=== PATIENT | male | born 1955 | race Caucasian/White ===

== ENCOUNTER 2018-10-13 01:36 | Inpatient (IN) | payer SELFPAY ==
[~2018-10-13] VITALS: Ht 167.6 cm; Wt 65.8 kg
[2018-10-13 01:39] VITALS: BP 103/66
[2018-10-13] MEDS ORDERED: NACL 0.9% 1,000 ML IV ONE ×2 (01:40→03:45)
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
--- NOTE | 2018-10-13 02:05 | NUR ---
EMT CLEANING OUT LAC AT BEDSIDE.
--- NOTE | 2018-10-13 02:07 | NUR ---
LAB AT BEDSIDE.
--- NOTE | 2018-10-13 02:09 | NUR ---
DR. STRONG PERFORMING LAC REPAIR AT BEDSIDE.
--- NOTE | 2018-10-13 02:13 | NUR ---
4 KRISTOPHER PLACED TO RIGHT EAR, 8 PLACED TO RIGHT SIDE HEAD BY DR. STRONG. PT TOLERATED PROCEDURE WELL.
--- NOTE | 2018-10-13 02:20 | NUR ---
PT IS SLEEPING DEEPLY. AROUSABLE TO VOICE. SPO2 AT 89% ON RA. PT PLACED ON 3 LPM FIO2 VIA NC. SPO2 INCREASED TO 96%.
[2018-10-13 02:29] LABS: HEMATOCRIT 46.3 % (36-52); HEMOGLOBIN 15.3 g/dL (12.0-18.0); MEAN CORPUSCULAR HEMOGLOBIN 32 pg (27-31); MEAN CORPUSCULAR HGB CONC 33 g/dL (33-37); MEAN CORPUSCULAR VOLUME 96.7 fL (80-94); PLATELET COUNT (AUTO) 172 K/uL (140-450); RED BLOOD CELL COUNT(AUTO) 4.79 MIL/uL (4.20-6.10); RED CELL DISTRIBUTION WIDTH 15.5 % (11.6-13.7); WHITE BLOOD COUNT (AUTO) 17.8 K/uL (4.8-10.8)
--- NOTE | 2018-10-13 02:36 | NUR ---
PT TAKEN TO CT VIA [facility].
[2018-10-13 02:42] LABS: LYMPHOCYTES % (MANUAL) 4 % (20-46); MONOCYTES % (MANUAL) 11 % (5-12)
[2018-10-13 02:50] LABS: ANION GAP 17.9 (8-16); CARBON DIOXIDE 21.9 mmol/L (21-32); CREATININE 1.6 mg/dL (0.7-1.3); POTASSIUM 3.8 mmol/L (3.5-5.1)
--- NOTE | 2018-10-13 02:55 | NUR ---
PT RETURNED FROM CT VIA [facility].
[2018-10-13 02:56] LABS: ALBUMIN 3.6 g/dL (3.4-5.0); TOTAL BILIRUBIN 0.1 mg/dL (0.0-1.0)
--- NOTE | 2018-10-13 03:47 | NUR ---
PT SLEEPING DEEPLY. AROUSABLE TO STIMULI. VSS. SKIN PINK, WARM, DRY. BREATHING EVEN, UNLABORED.
--- NOTE | 2018-10-13 04:35 | NUR ---
PT AWAKE, REQUESTING WATER. UNABLE TO SPEAK IN COHERENT SENTENCES. CONFUSION NOTED. DR. STRONG MADE AWARE.
--- NOTE | 2018-10-13 04:42 | NUR ---
PT HAD EMESIS X 1. REQUESTING RR. URINAL PROVIDED.
--- NOTE | 2018-10-13 04:50 | NUR ---
EMPTIED 400 ML CLEAR YELLOW URINE FROM URINAL.
--- NOTE | 2018-10-13 04:51 | NUR ---
PT'S SPO2 SAT 86% ON RA AND IS SLIGHTLY TACHY AT [address] STRONG MADE AWARE.
--- NOTE | 2018-10-13 05:04 | NUR ---
XRAY AT BEDSIDE.
--- NOTE | 2018-10-13 05:10 | NUR ---
RT AT BEDSIDE PERFORMING ABG.
[2018-10-13] MEDS ORDERED: LEVOFLOXACIN 750 MG/D5W PREMIX 150 ML IV ONE (05:30)
[2018-10-13] MEDS ORDERED: NACL 0.9% 2,000 ML IV ONE (05:30)
[2018-10-13] MEDS ORDERED: cefTRIAXone 1,000 MG VIAL ONE (05:50)
--- NOTE | 2018-10-13 05:50 | NUR ---
LABS DRAWN AND SENT TO LAB. UA SENT TO LAB.
--- NOTE | 2018-10-13 06:00 | NUR ---
PT HAD EMESIS X 2. DR. STRONG NOTIFIED. NEW ORDERS RECEIVED.
[2018-10-13 06:05] LABS: APPEARANCE,URINE CLEAR (CLEAR); BILIRUBIN,URINE NEGATIVE (NEGATIVE); BLOOD, URINE 1+ (NEGATIVE); COLOR,URINE YELLOW (YELLOW); LEUKOCYTE ESTERASE ,URINE NEGATIVE (NEGATIVE); NITRITE, URINE NEGATIVE (NEGATIVE); PH,URINE 5.5 (5.0-9.0); UGLUCOSE NEGATIVE (NEGATIVE)
[2018-10-13] MEDS ORDERED: ONDANSETRON 4 MG/2 ML VIAL IVP ONE (06:05)
[2018-10-13 06:16] LABS: RBC,URINE NONE SEEN /HPF (0-5); WBC,URINE 0-5 /HPF (0-5)
[2018-10-13 06:17] LABS: HYALINE CASTS, URINE 0-10 /LPF (None Seen)
[2018-10-13 06:20] LABS: PROTHROMBIN TIME 9.5 secs (10.8-13.4)
--- NOTE | 2018-10-13 07:20 | NUR ---
RECEIVED REPORT FROM LORNE POPE.
--- NOTE | 2018-10-13 07:21 | NUR ---
EMPTIED 400ML CLEAR YELLOW URINE FROM URINAL. PT TACHY AT 117, VSS. PT VOICE SOUNDS WET, PT STATED THAT THAT IS HIS NORMAL SPEAKING VOICE, CRACKLES PRESENT IN UPPER AIRWAY ON EXPIRATION. Addendum: 10/13/18 at 0728 by HOSSEIN PT HAS PRESENCE OF PRODUCTIVE COUGH, O2 SAT AT 96%, RR EVEN, NON-LABORED, PT DENIES SOB
--- NOTE | 2018-10-13 07:43 | NUR ---
Patient will be admitted to care of [facility]. Admited to TELE VIA GUARIEL W/ VSS. Will go to room 111B. Belongings list completed.
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
[2018-10-13] MEDS ORDERED: NACL 0.9% 1,000 ML IV SCH (07:54)
[2018-10-13] MEDS ORDERED: ACETAMINOPHEN 325 MG TAB PO PRN (07:55)
[2018-10-13] MEDS ORDERED: LORazepam 2 MG/ML VIAL IM/IVP PRN (07:55)
[2018-10-13] MEDS ORDERED: HYDROcodone/APAP 5/325 MG 1 TAB TAB PO PRN (07:55)
[2018-10-13] MEDS ORDERED: MORPHINE SULFATE 2 MG/ML SYR IVP PRN (07:55)
[2018-10-13] MEDS ORDERED: ZOLPIDEM 5 MG TAB PO PRN (07:55)
[2018-10-13] MEDS ORDERED: DOCUSATE SODIUM 100 MG GELCAP PO PRN (07:55)
[2018-10-13 09:20] LABS: FREE T4 (FREE THYROXINE) 0.99 ng/dL (0.76-1.46); MAGNESIUM 2.2 mg/dL (1.8-2.4); PHOSPHORUS 5.7 mg/dL (2.5-4.9); THYROID STIMULATING HORMONE 1.8 uIU/mL (0.34-3.74)
[2018-10-13] MEDS ORDERED: hePARIN / DEXT 5% PREMIX 250 ML IV SCH ×2 (10:00→10:15)
[2018-10-13] MEDS ORDERED: HEPARIN PER PHARMACY MC PRN (10:00)
[2018-10-13 10:15] LABS: BARBITURATE, URINE NEG. ng/ml (NEG <=200); BENZODIAZEPINE, URINE NEG. ng/mL (NEG <=200); CANNABINOID, URINE NEG. ng/mL (NEG <=50); COCAINE, URINE NEG. ng/mL (NEG <=300); OPIATE, URINE POS. ng/mL (NEG <=2000); PHENCYCLIDINE SCREEN,URINE NEG. ng/mL (NEG <=25)
[2018-10-13] MEDS ORDERED: ONDANSETRON 4 MG/2 ML VIAL IM/IVP PRN (10:30)
--- NOTE | 2018-10-13 10:39 | NUR ---
ORDERED HEPARIN DRIP ON PT D/T [facility] 0.106. WILL START NEW IV LINE
--- NOTE | 2018-10-13 11:33 | NUR ---
HEALTH SYSTEMS ANALYST STARTED IV LINE 24 G ON RIGHT HAND. WILL SWITCH IV FLUIDS TO INFUSE THROUGH RIGHT AHND IV LINE AND HEPARIN DRIP ON LEFT HAND 20G.
--- NOTE | 2018-10-13 12:30 | NUR ---
BP 183/93, CHECKED 2X BUT STILL AROUND THE SAME RANGE. NOTIFIED AND HE SAID HE WILL ORDER HYDRALAZINE
[2018-10-13] MEDS ORDERED: hydrALAZINE 20 MG/ML VIAL IVP SCH (12:45)
[2018-10-13] MEDS ORDERED: METOPROLOL 25 MG TAB PO SCH (12:45)
--- NOTE | 2018-10-13 13:05 | NUR ---
RECHECKED BP AND IT WAS 157/92. WILL NOT GIVE HYDRALAZINE NOW. WILL GIVE ORDERED METOPROLOL
--- NOTE | 2018-10-13 13:25 | NUR ---
PATIENT HAS BEEN SCREENED AND CATEGORIZED LOW NUTRITION RISK. PATIENT WILL BE SEEN WITHIN 7 DAYS OF ADMISSION. 10/20/18 MAYTE GONZALEZ MBA, RD
[2018-10-13 13:42] VITALS: BP 157/92
[2018-10-13] MEDS ORDERED: MULTIVITAMIN-12 10 ML, THIAMINE 100 MG, FOLIC ACID 1 MG in NACL 0.9% 1,000 ML IV SCH (14:15)
[2018-10-13 16:00] VITALS: BP 134/71
[2018-10-13] MEDS: chlordiazePOXIDE 25 MG CAP PO SCH (16:44)
--- NOTE | 2018-10-13 18:45 | NUR ---
PTT 38.6. INCREASED RATE UP TO 9.3ML/HR AND GAVE BOLUS 2000 UNITS PRIOR TO INCREASING RATE PER MD PARAMETERS. CALLED INTERNATIONAL SALES MANAGER PHARMACIST TO MAKE SURE NEW RATE IS CORRECT. WILL CONTINUE TO MONITOR
--- NOTE | 2018-10-13 19:37 | NUR ---
GAVE BED SIDE REPORT FROM ONCOLOGY CONSULTANT TOSHIA COLLINS. PT IN STABLE CONDITION
--- NOTE | 2018-10-13 19:40 | NUR ---
RECEIVED PT SLEEPING, EASILY AROUSABLE TO VERBAL STIMULI, AAOX4, ABLE TO MAKE NEEDS KNOWN, VITAL SIGNS STABLE, DENIES ANY PAIN, HEPARIN DRIP INFUSING WELL AT LEFT HAND IV SITE, BANANA BAG INFUSING WELL VIA RT UA IV SITE, WITH RIGHT EAR LACERATION AND RIGHT FOREHEAD LACERATION, KRISTOPHER INTACT, NO ACTIVE BLEEDING NOTED, SITE CHART COMPUTER, PLAN OF CARE DISCUSSED, SAFETY MEASURES IN PLACE, CALL LIGHT WITHIN REACH.
[2018-10-13 20:00] VITALS: BP 133/73
[2018-10-13] MEDS: METOPROLOL 25 MG TAB PO SCH (20:58)
--- NOTE | 2018-10-13 21:00 | NUR ---
HEPARIN DISCONTINUED ORDERED, DUE MEDICATION GIVEN WITH EDUCATION PROVIDED, PT AMBULATED TO BR WITH STEADY GAIT, VOIDED FREELY, ALL NEEDS ATTENDED.
[2018-10-14] VITALS: BP 119/65
--- NOTE | 2018-10-14 | NUR ---
PT SLEEPING, EASILY AROUSABLE TO VERBAL STIMULI, VITAL SIGNS STABLE, DENIES ANY PAIN, NO SEIZURE EPISODE NOTED SO FAR, BANANA BAG INFUSING WELL, CONTINUE TO MONITOR CLOSELY.
[2018-10-14] MEDS: NACL 0.9% 1,000 ML IV SCH ×2 (01:20→10:30)
--- NOTE | 2018-10-14 03:50 | NUR ---
PT SLEEPING, AROUSABLE TO TOUCH, VITAL SIGNS STABLE, DENIES ANY PAIN, IVF INFUSING WELL, MONITORED CLOSELY.
[2018-10-14 04:00] VITALS: BP 140/76
--- NOTE | 2018-10-14 06:08 | NUR ---
PT AWAKE AMBULATING IN THE ROOM, REQUESTING FOR COFFEE, REINFORCE NPO EXCEPT MEDS STATUS, VERBALIZED UNDERSTANDING, DENIES ANY PAIN, NO SEIZURE EPISODE AND WITHDRAWAL SYMPTOMS NOTED, IVF INFUSING WELL, MONITORED CLOSELY.
--- NOTE | 2018-10-14 07:22 | NUR ---
PT EASILY AROUSABLE, NO DISTRESS NOTED, REPORT GIVEN TO TOSHIA MORFIN FOR CONTINUITY OF CARE.
--- NOTE | 2018-10-14 07:23 | NUR ---
RECEIVED REPORT FROM POLYSTYRENE MOLDING MACHINE TENDER NURSE. PATIENT LYING DOWN IN BED SLEEPING, AROUSABLE BY VOICE. NO DISTRESS NOTED. DENIES ANY PAIN. RESPIRATIONS EVEN, UNLABORED, ON ROOM AIR. AAOX4, CALM, COOPERATIVE, SKIN COLOR APPROPRIATE TO ETHNICITY, WARM TO TOUCH. HAS RIGHT EAR AND RIGHT FOREHEAD LACERATION WITH KRISTOPHER ON THEM, INTACT. NO S/S OF WOUND INFECTION NOTED. ABDOMEN SOFT, NON-DISTENDED. IV SITE INTACT, PATENT, AND INFUSING IVF PER MD ORDERS. REVIEWED PLAN OF CARE WITH PATIENT. PATIENT VERBALIZED UNDERSTANDING. SAFETY MEASURES IN PLACE, CALL LIGHT WITHIN REACH. WILL CONTINUE TO MONITOR.
[2018-10-14 08:00] VITALS: BP 136/76
[2018-10-14] MEDS: chlordiazePOXIDE 25 MG CAP PO SCH (08:50)
[2018-10-14] MEDS: METOPROLOL 25 MG TAB PO SCH (08:50)
[2018-10-14] MEDS ORDERED: LACTOBACILLUS RHAMNOSUS GG 1 EACH CAP PO SCH (09:00)
--- NOTE | 2018-10-14 09:12 | NUR ---
PATIENT SITTING IN BED ON THE PHONE. NO DISTRESS NOTED. DENIES ANY PAIN. SCHEDULED MEDICATIONS DUE GIVEN. WILL CONTINUE TO MONITOR.
[2018-10-14] MEDS ORDERED: LIB25 PO (09:18)
[2018-10-14] MEDS ORDERED: METO25TA PO (09:18)
[2018-10-14 10:22] LABS: BASOPHILS # (AUTO) 0.1 K/uL (0.00-0.22); BASOPHILS % (AUTO) 0.8 % (0.0-2.0); EOSINOPHILS % (AUTO) 0.1 % (0.0-4.0); HEMATOCRIT 42.4 % (36-52); HEMOGLOBIN 14.2 g/dL (12.0-18.0); LYMPHOCYTES # (AUTO) 1.1 K/uL (2.0-11.5); LYMPHOCYTES % (AUTO) 11.4 % (20.5-51.1); MEAN CORPUSCULAR HEMOGLOBIN 32 pg (27-31); MEAN CORPUSCULAR HGB CONC 34 g/dL (33-37); MONOCYTES # (AUTO) 0.8 K/uL (0.8-1.0); NEUTROPHILS # (AUTO) 7.7 K/uL (1.8-7.7); NEUTROPHILS % (AUTO) 79.7 % (42.2-75.2); PLATELET COUNT (AUTO) 145 K/uL (140-450); RED BLOOD CELL COUNT(AUTO) 4.46 MIL/uL (4.20-6.10); RED CELL DISTRIBUTION WIDTH 15.1 % (11.6-13.7); WHITE BLOOD COUNT (AUTO) 9.7 K/uL (4.8-10.8)
[2018-10-14 10:37] LABS: ANION GAP 13.3 (8-16); CARBON DIOXIDE 27.4 mmol/L (21-32); POTASSIUM 3.7 mmol/L (3.5-5.1)
[2018-10-14 10:39] LABS: MAGNESIUM 1.9 mg/dL (1.8-2.4); PHOSPHORUS 1.3 mg/dL (2.5-4.9)
--- NOTE | 2018-10-14 11:15 | NUR ---
DISCHARGE INSTRUCTIONS GIVEN TO PATIENT IN PREFERRED LANGUAGE OF GUAMANIAN. FOLLOW-UP INSTRUCTIONS WITH PCP, NEW/CHANGED MEDICATION REGIMEN AND SIDE EFFECTS, DIET REGIMEN, AND ALCOHOL WITHDRAWAL SYMPTOMS. ANSWERED ALL OF PATIENT'S QUESTIONS REGARDING DISCHARGE. PATIENT VERBALIZED COMPLETE UNDERSTANDING. PATIENT GOING HOME WITH BUS PASS. IV'S REMOVED WITH MINIMAL BLOOD AND LUMEN COMPLETELY INTACT. ID BANDS REMOVED. PATIENT ALL DRESSED AND READY TO GO HOME. ESCORTED PATIENT DOWN TO LOBBY VIA STEADY AMBULATION. PATIENT DISCHARGED TO HOME AT THIS TIME IN STABLE CONDITION.
== END 2018-10-14 11:21 | disposition home or self-care (01) | DRG 280 ==
LOC: MED 01:36 → MTU 07:19
PROVIDERS: ADMIT General Practice; ATTEND General Practice
PROC: 09Q0XZZ Repair Right External Ear, External Approach (ICD-10-PCS; principal; 2018-10-13)
PROC: 0HQ1XZZ Repair Face Skin, External Approach (ICD-10-PCS; 2018-10-13)
DX: I21.A1 Myocardial infarction type 2 (principal); G92 Toxic encephalopathy; K85.90 Acute pancreatitis without necrosis or infection, unspecified; N17.0 Acute kidney failure with tubular necrosis; S09.21XA Traumatic rupture of right ear drum, initial encounter; W18.39XA Other fall on same level, initial encounter; S01.81XA Laceration without foreign body of other part of head, initial encounter; F17.210 Nicotine dependence, cigarettes, uncomplicated; D72.829 Elevated white blood cell count, unspecified; I10 Essential (primary) hypertension; E83.39 Other disorders of phosphorus metabolism; R00.0 Tachycardia, unspecified; Y93.89 Activity, other specified; Y92.89 Other specified places as the place of occurrence of the external cause; Y99.8 Other external cause status; F19.10 Other psychoactive substance abuse, uncomplicated
CPT/HCPCS: 12013; 36415; 36600; 70450; 71045; 80048; 80053; 80305; 81001; 82150; 82803; 83036; 83605; 83690; 83735; 83880; 84100; 84439; 84443; 84484; 85025; 85610; 85730; 87040; 87081; 87086; 93005; 96361; 96365; 96367; 99285; A9153; G0482; J0696; J1644; J1956; J2405; J3411; J3490; J7030; J7060; Q0092